=== PATIENT | female | born 1990 | race Caucasian/White ===

== ENCOUNTER 2016-11-03 00:04 | Emergency (ER) | payer OTHER ==
[~2016-11-03 00:04] MED LIST: DOCU10CA PO; FERR325T3 PO; IBUP80TA PO; IRON18TA PO; PRENTAB29; TYLE325T5 PO
--- NOTE | 2016-11-03 00:46 | EDDOCDS ---
Physician Documentation [facility] Name: Janki Gastelum Age: 25 yrs Sex: Female : 1990 Arrival Date: 11/03/2016 Time: 00:04 Bed Triage 2 Private MD: Araceli Mejia Disposition: 11/03/16 00:34 Discharged to Home/Self Care. Impression: Encounter for other postprocedural aftercare - POST WISDOM TOOTH EXTRACTION. - Condition is Stable. - Discharge Instructions: Dental Extraction, Care After. - Medication Reconciliation, Local Pharmacy Hours form. - Follow up: Private Physician; When: Tomorrow; Reason: Recheck today's complaints, Continuance of care. - Problem is new. - Symptoms have improved. - Notes: FOLLOW UP WITH YOUR ORAL SURGEON TOMORROW Historical: - Allergies: No known drug Allergies; - Home Meds: 1. Tylenol 325 mg Oral tab 1 tab every 6 hours (Last dose: 11/02/2016 23:00) 2. Motrin 600 mg Oral tab 1 tab (Last dose: 11/02/2016 23:00) - PMHx: none; - PSHx: reconstructive surgery on left shoulder and right wrist; - Social history: Smoking status: Patient states was never smoker of tobacco. No barriers to communication noted, The patient speaks fluent Croatian, Speaks appropriately for age, Preferred Language: Croatian. - Family history: Not pertinent. - : The pt / caregiver states he / she is not on anticoagulants. Home medication list is obtained from the patient. - Exposure Risk Screening:: None identified. 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 11 in. (180.34 cm) (R); Pain 0/10; 00:12 Body Mass Index 25.80 (83.91 kg, 180.34 cm) lf1 Signatures: Caroline Davis,RN RN lf1 Silvano Vale, RPA-C RPA-Cck7 MTDD
--- NOTE | 2016-11-03 00:46 | EDDOCDS ---
Nurse's Notes [facility] Name: Janki Gastelum Age: 25 yrs Sex: Female : 1990 Arrival Date: 11/03/2016 Time: 00:04 Bed Triage 2 Private MD: Araceli Mejia Diagnosis: Encounter for other postprocedural aftercare-POST WISDOM TOOTH EXTRACTION Presentation: 11/03 00:12 Presenting complaint: Patient states: Pt had wisdom teeth removed today By [place] [id number] [facility] (Dr. Quintanilla) and believes that some of the sutures from the upper left are coming out. No bleeding noted at this time. Adult Sepsis Screening: The patient does not have new or worsening altered mentation. Patient's respiratory rate is less than 22. Systolic blood pressure is greater than 100. Patient has a qSOFA score of 0- Negative Sepsis Screen. Suicide/Homicide risk assessment- the patient denies having any suicidal and/or homicidal ideations and does not present with any other emotional, behavioral or mental health complaints. Status: The patient is a dependent. Transition of care: patient was not received from another setting of care. 00:12 Acuity: MAYA Level [address] [facility] 00:12 Method Of Arrival: Walkin/Carried/Asstd [facility] Triage Assessment: 00:17 General: Appears in no apparent distress, comfortable, Behavior is cooperative. Pain: lf1 Denies pain. HIV screening NA for this visit Offered previously. Neurological: Level of Consciousness is awake, alert, Oriented to person, place, time. EENT: Reports wisdom teeth removal today, reports sutures are coming out. Respiratory: Respiratory effort is even, unlabored. GI: Denies nausea, vomiting. Derm: Skin is normal. Injury Description: No known injury. 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 Tylenol 325 mg Oral tab 1 tab every 6 hours (Last dose: 11/02/2016 23:00) 2. Motrin 600 mg Oral tab 1 tab (Last dose: 11/02/2016 23:00) - PMHx: none; - PSHx: reconstructive surgery on left shoulder and right wrist; - Social history: Smoking status: Patient states was never smoker of tobacco. No barriers to communication noted, The patient speaks fluent Beninese, Speaks appropriately for age, Preferred Language: Beninese. - Family history: Not pertinent. - : The pt / caregiver states he / she is not on anticoagulants. Home medication list is obtained from the patient. - Exposure Risk Screening:: None identified. Screenin:18 Screening information is obtained from the patient. Fall risk: No risks identified. lf1 Assistance ADL's: requires no assistance with activities of daily living. Abuse/DV Screen: The patient / caregiver reports he/she is: not in a situation that causes fear, pain or injury. Nutritional screening: No deficits noted. Advance Directives: Currently, there is a health care proxy, Carlos Gastelum (Spouse). home support is adequate. Assessment: 00:43 Adult Sepsis Screening: The patient does not have new or worsening altered mentation. lf1 Patient's respiratory rate is less than 22. Systolic blood pressure is greater than 100. Patient has a qSOFA score of 0- Negative Sepsis Screen. General: Appears in no apparent distress, comfortable, Behavior is cooperative. Pain: Denies pain. Neurological: Level of Consciousness is awake, alert, Oriented to person, place, time. EENT: Reports recent wisdom teeth extraction with sutures that are coming out. Cardiovascular: No deficits noted. Respiratory: Respiratory effort is even, unlabored. GI: Denies nausea, vomiting. Derm: Skin is normal. Vital Signs: 00:12 BP 111 / 61; Pulse 76; Temp 98.0(TE); Pulse Ox 97% on R/A; Weight 83.91 kg; Height [address] [facility] ft. 11 in. (180.34 cm) (R); Pain 0/10; 00:12 Body Mass Index 25.80 (83.91 kg, 180.34 cm) [facility] Vitals: 00:12 Log In Time: November 03, 2016 at 00:07. [facility] ED Course: 00:05 Patient visited by Caroline Marie. 00:05 Patient moved to Waiting lj 00:07 Araceli Mejia is Private Physician. lja 00:12 Patient moved to Triage 2 lf 00:13 Triage Initiated 1 00:19 Patient visited by Caroline Davis RN. 1 00:31 Silvano Vale [facility] ck[facility] 00:31 Adeel Avila MD is Attending Physician. ck7 00:31 Patient visited by Silvano Vale RPA-C. ck7 00:43 Patient visited by Caroline Davis RN. lf1 00:43 The patient / caregiver is instructed regarding the plan of care and ED course. lf1 00:43 No IV's were initiated during this patient's visit. No procedures done that require lf1 assistance. Order Results: There are currently no results for this order. Outcome: 00:34 Discharge ordered by Provider. ck7 00:43 Discharge Assessment: Patient awake, alert and oriented x 3. No cognitive and/or lf1 functional deficits noted. Patient verbalized understanding of disposition instructions. Patient awake and alert. Oriented to person, place and time. Patient verbalized understanding of disposition instructions. patient administered narcotics - no. The following High Risk Discharge criteria are identified: None. Discharged to home ambulatory, with family. Condition: unchanged. Discharge instructions given to patient, Instructed on discharge instructions, follow up and referral plans. Demonstrated understanding of instructions, Pt was receptive of discharge instructions/ teaching. No special radiology studies were completed. Property :Personal belongings accompany Pt. 00:46 Patient left the ED. lf1 Signatures: Caroline Davis RN RN lf1 Silvano Vale RPA-C RPA-Cck7 Caroline Marie [facility]ITAL[facility]
--- NOTE | 2016-11-05 01:46 | EDDOCDS ---
Nurse's Notes [facility] Name: Janki Gastelum Age: 25 yrs Sex: Female : 1990 Arrival Date: 11/03/2016 Time: 00:04 Bed Triage 2 Private MD: Araceli Mejia Diagnosis: Encounter for other postprocedural aftercare-POST WISDOM TOOTH EXTRACTION Presentation: 11/03 00:12 Presenting complaint: Patient states: Pt had wisdom teeth removed today By [place] [id number] [facility] (Dr. Quintanilla) and believes that some of the sutures from the upper left are coming out. No bleeding noted at this time. Adult Sepsis Screening: The patient does not have new or worsening altered mentation. Patient's respiratory rate is less than 22. Systolic blood pressure is greater than 100. Patient has a qSOFA score of 0- Negative Sepsis Screen. Suicide/Homicide risk assessment- the patient denies having any suicidal and/or homicidal ideations and does not present with any other emotional, behavioral or mental health complaints. Status: The patient is a dependent. Transition of care: patient was not received from another setting of care. 00:12 Acuity: MAYA Level 5 [facility] 00:12 Method Of Arrival: Walkin/Carried/Asstd [facility] Triage Assessment: 00:17 General: Appears in no apparent distress, comfortable, Behavior is cooperative. Pain: lf1 Denies pain. HIV screening NA for this visit Offered previously. Neurological: Level of Consciousness is awake, alert, Oriented to person, place, time. EENT: Reports wisdom teeth removal today, reports sutures are coming out. Respiratory: Respiratory effort is even, unlabored. GI: Denies nausea, vomiting. Derm: Skin is normal. Injury Description: No known injury. 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 Tylenol 325 mg Oral tab 1 tab every 6 hours (Last dose: 11/02/2016 23:00) 2. Motrin 600 mg Oral tab 1 tab (Last dose: 11/02/2016 23:00) - PMHx: none; - PSHx: reconstructive surgery on left shoulder and right wrist; - Social history: Smoking status: Patient states was never smoker of tobacco. No barriers to communication noted, The patient speaks fluent Guatemalan, Speaks appropriately for age, Preferred Language: Guatemalan. - Family history: Not pertinent. - : The pt / caregiver states he / she is not on anticoagulants. Home medication list is obtained from the patient. - Exposure Risk Screening:: None identified. Screenin:18 Screening information is obtained from the patient. Fall risk: No risks identified. lf1 Assistance ADL's: requires no assistance with activities of daily living. Abuse/DV Screen: The patient / caregiver reports he/she is: not in a situation that causes fear, pain or injury. Nutritional screening: No deficits noted. Advance Directives: Currently, there is a health care proxy, Carlos Gastelum (Spouse). home support is adequate. Assessment: 00:43 Adult Sepsis Screening: The patient does not have new or worsening altered mentation. lf1 Patient's respiratory rate is less than 22. Systolic blood pressure is greater than 100. Patient has a qSOFA score of 0- Negative Sepsis Screen. General: Appears in no apparent distress, comfortable, Behavior is cooperative. Pain: Denies pain. Neurological: Level of Consciousness is awake, alert, Oriented to person, place, time. EENT: Reports recent wisdom teeth extraction with sutures that are coming out. Cardiovascular: No deficits noted. Respiratory: Respiratory effort is even, unlabored. GI: Denies nausea, vomiting. Derm: Skin is normal. Vital Signs: 00:12 BP 111 / 61; Pulse 76; Temp 98.0(TE); Pulse Ox 97% on R/A; Weight 83.91 kg; Height 5 [facility] ft. 11 in. (180.34 cm) (R); Pain 0/10; 00:12 Body Mass Index 25.80 (83.91 kg, 180.34 cm) [facility] Vitals: 00:12 Log In Time: November 03, 2016 at 00:07. [facility] ED Course: 00:05 Patient visited by Caroline Marie. 00:05 Patient moved to Waiting lj 00:07 Araceli Mejia is Private Physician. lja 00:12 Patient moved to Triage 2 lf 00:13 Triage Initiated 1 00:19 Patient visited by Caroline Davis RN. 1 00:31 [facility]vano [facility]C [facility] 00:31 Adeel Avila MD is Attending Physician. ck7 00:31 Patient visited by Silvano Vale RPA-C. ck7 00:43 Patient visited by Caroline Davis RN. lf1 00:43 The patient / caregiver is instructed regarding the plan of care and ED course. lf1 00:43 No IV's were initiated during this patient's visit. No procedures done that require lf1 assistance. 00:49 [facility] Payment Agreement was scanned into [employer] and attached to record. jp5 14:57 T-Sheet-- Draft Copy was scanned into [employer] and attached to record. gb Order Results: There are currently no results for this order. Outcome: 00:34 Discharge ordered by Provider. ck7 00:43 Discharge Assessment: Patient awake, alert and oriented x 3. No cognitive and/or lf1 functional deficits noted. Patient verbalized understanding of disposition instructions. Patient awake and alert. Oriented to person, place and time. Patient verbalized understanding of disposition instructions. patient administered narcotics - no. The following High Risk Discharge criteria are identified: None. Discharged to home ambulatory, with family. Condition: unchanged. Discharge instructions given to patient, Instructed on discharge instructions, follow up and referral plans. Demonstrated understanding of instructions, Pt was receptive of discharge instructions/ teaching. No special radiology studies were completed. Property :Personal belongings accompany Pt. 00:46 Patient left the ED. lf1 Signatures: Irma Mcdonough, Reg Reg Caroline Fink,GRETEL RN lf1 Silvano Vale RPA-C RPA-Cck7 Caroline Marie Jennalee 5 Chart Complete [facility]
--- NOTE | 2016-11-05 01:46 | EDDOCDS ---
Physician Documentation [facility] Name: Janki Gastelum Age: 25 yrs Sex: Female : 1990 Arrival Date: 11/03/2016 Time: 00:04 Bed Triage 2 Private MD: Araceli Mejia Disposition: 11/03/16 00:34 Discharged to Home/Self Care. Impression: Encounter for other postprocedural aftercare - POST WISDOM TOOTH EXTRACTION. - Condition is Stable. - Discharge Instructions: Dental Extraction, Care After. - Medication Reconciliation, Local Pharmacy Hours form. - Follow up: Private Physician; When: Tomorrow; Reason: Recheck today's complaints, Continuance of care. - Problem is new. - Symptoms have improved. - Notes: FOLLOW UP WITH YOUR ORAL SURGEON TOMORROW Historical: - Allergies: No known drug Allergies; - Home Meds: 1. Tylenol 325 mg Oral tab 1 tab every 6 hours (Last dose: 11/02/2016 23:00) 2. Motrin 600 mg Oral tab 1 tab (Last dose: 11/02/2016 23:00) - PMHx: none; - PSHx: reconstructive surgery on left shoulder and right wrist; - Social history: Smoking status: Patient states was never smoker of tobacco. No barriers to communication noted, The patient speaks fluent Brazilian, Speaks appropriately for age, Preferred Language: Brazilian. - Family history: Not pertinent. - : The pt / caregiver states he / she is not on anticoagulants. Home medication list is obtained from the patient. - Exposure Risk Screening:: None identified. 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 11 in. (180.34 cm) (R); Pain 0/10; 00:12 Body Mass Index 25.80 (83.91 kg, 180.34 cm) lf1 MDM: 00:49 [facility] Payment Agreement was scanned into [employer] and attached to record. jp5 00:49 Financial registration complete. jp5 14:57 T-Sheet-- Draft Copy was scanned into [employer] and attached to record. gb Signatures: Irma Mcdonough, Reg Reg gb Caroline Davis,RN RN lf1 Silvano Vale, RPA-C RPA-Cck7 Kofi Michel jp5 The chart was reviewed and I authenticate all verbal orders and agree with the evaluation and treatment provided.Attachments: 00:49 [facility] Payment Agreement jp5 14:57 T-Sheet-- Draft Copy gb Chart Complete MTDD
--- NOTE | 2016-11-05 01:46 | EDDOCDS ---
Physician Documentation [facility] Name: Janki Gasteulm Age: 25 yrs Sex: Female : 1990 Arrival Date: 11/03/2016 Time: 00:04 Bed Triage 2 Private MD: Araceli Mejia Disposition: 11/03/16 00:34 Discharged to Home/Self Care. Impression: Encounter for other postprocedural aftercare - POST WISDOM TOOTH EXTRACTION. - Condition is Stable. - Discharge Instructions: Dental Extraction, Care After. - Medication Reconciliation, Local Pharmacy Hours form. - Follow up: Private Physician; When: Tomorrow; Reason: Recheck today's complaints, Continuance of care. - Problem is new. - Symptoms have improved. - Notes: FOLLOW UP WITH YOUR ORAL SURGEON TOMORROW Historical: - Allergies: No known drug Allergies; - Home Meds: 1. Tylenol 325 mg Oral tab 1 tab every 6 hours (Last dose: 11/02/2016 23:00) 2. Motrin 600 mg Oral tab 1 tab (Last dose: 11/02/2016 23:00) - PMHx: none; - PSHx: reconstructive surgery on left shoulder and right wrist; - Social history: Smoking status: Patient states was never smoker of tobacco. No barriers to communication noted, The patient speaks fluent South African, Speaks appropriately for age, Preferred Language: South African. - Family history: Not pertinent. - : The pt / caregiver states he / she is not on anticoagulants. Home medication list is obtained from the patient. - Exposure Risk Screening:: None identified. 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 11 in. (180.34 cm) (R); Pain 0/10; 00:12 Body Mass Index 25.80 (83.91 kg, 180.34 cm) lf1 MDM: 00:49 [facility] Payment Agreement was scanned into [employer] and attached to record. jp5 00:49 Financial registration complete. jp5 14:57 T-Sheet-- Draft Copy was scanned into [employer] and attached to record. gb Signatures: Irma Mcdonough, Reg Reg gb Caroline Davis,RN RN lf1 Silvano Vale, RPA-C RPA-Cck7 Kofi Michel jp5 The chart was reviewed and I authenticate all verbal orders and agree with the evaluation and treatment provided.Attachments: 00:49 [facility] Payment Agreement jp5 14:57 T-Sheet-- Draft Copy gb Chart Complete MTDD
== END 2016-11-03 00:46 | disposition home or self-care (01) ==
LOC: M ED 00:04
DX: Z48.814 Encounter for surgical aftercare following surgery on the teeth or oral cavity (principal); K08.409 Partial loss of teeth, unspecified cause, unspecified class